=== PATIENT | female | born 1940 | race Caucasian/White ===

== ENCOUNTER 2017-05-25 09:40 | Emergency (ER) | payer MEDICARE ==
[2017-05-25 10:29] LABS: BASOPHIL 0.2 % (0-2); EOSINOPHIL 3.2 % (0-7); HCT 39.4 % (37.0-47.0); HGB 13.6 g/dl (12.5-16.0); LYMPHOCYTE 27.7 % (15-48); MCH 30.6 pg (25.0-31.0); MCHC 34.5 g/dL (32.0-36.0); MCV 88.7 fL (78.0-100.0); MONOCYTE 10.4 % (0-12); NEUTROPHIL 58.5 % (41-80); PLT 213 K/uL (150-400); RBC 4.44 M/uL (4.20-5.40); RDW 14.1 % (11.5-14.0)
[2017-05-25 10:45] LABS: TROPONIN T < 0.010 ng/mL
[2017-05-25 10:47] LABS: BILIRUBIN - TOTAL 0.7 mg/dL (0.1-1.0); CREATININE 0.9 mg/dL (0.5-1.0); GLOBULIN (CALCULATION) 2.3 g/dL (2.2-4.2); POTASSIUM 4.3 mmol/L (3.5-5.1); TOTAL PROTEIN 6.3 g/dL (6.4-8.3)
== END 2017-05-25 12:07 | disposition home or self-care (01) ==
LOC: FER 09:40
PROVIDERS: Emergency Medicine
DX: K21.9 Gastro-esophageal reflux disease without esophagitis (principal); I10 Essential (primary) hypertension; I48.91 Unspecified atrial fibrillation; E07.9 Disorder of thyroid, unspecified; Z79.01 Long term (current) use of anticoagulants; Z79.899 Other long term (current) drug therapy
CPT/HCPCS: 36415; 71020; 80053; 82550; 82553; 84484; 85025; 93005